=== PATIENT | female | born 1950 | race Caucasian/White ===

== ENCOUNTER → 2020-09-21 | Outpatient (CLI) | payer MEDICARE, OTHER ==
[~2020-09-21] MED LIST: ACETAMINOPHEN325 MG PO; CALCIUM 1,0001 EACH PO; CENTRUM SILVER1 EAC4 PO; CLARITIN10 MG PO; FISH OIL 1,0001 EAC1 PO; LEVAQUIN750 MG PO; XOPENEX1.25 MG/3 INH; ZOCOR40 MG PO
== END ==
LOC: HEART 5 15:45
DX: R05 Cough (principal)
CPT/HCPCS: 94010

== ENCOUNTER → 2020-09-22 | Outpatient (CLI) | payer MEDICARE, OTHER | LOC: EXRD 08:24 | DX: R05 Cough (principal) | CPT/HCPCS: 71046 ==

== ENCOUNTER → 2020-11-19 | Outpatient (CLI) | payer MEDICARE, OTHER | LOC: MAMO 11:30 | DX: Z12.31 Encounter for screening mammogram for malignant neoplasm of breast (principal) | CPT/HCPCS: 77063; 77067 ==

== ENCOUNTER → 2021-02-21 | Outpatient (CLI) | payer MEDICARE, OTHER | LOC: RAD 16:27 | DX: M25.561 Pain in right knee (principal); W19.XXXA Unspecified fall, initial encounter; M25.579 Pain in unspecified ankle and joints of unspecified foot; M25.473 Effusion, unspecified ankle | CPT/HCPCS: 73562; 73610 ==